=== PATIENT | female | born 1995 | race Caucasian/White ===

== ENCOUNTER 2017-08-29 10:55 | Emergency (ER) | payer OTHER ==
[2017-08-29 11:11] VITALS: BP 123/65
--- NOTE | 2017-08-29 11:29 | EDM.PDOC ---
ED HPI GENERAL MEDICAL PROBLEM - General Chief Complaint: ENT Problem Stated Complaint: SORE THROAT Time Seen by Provider: 08/29/17 11:12 - History of Present Illness INITIAL COMMENTS - FREE TEXT/NARRATIVE: ED HPI GENERAL MEDICAL PROBLEM - General Chief Complaint: Respiratory Problem Stated Complaint: COUGH Time Seen by Provider: 08/29/17 11:15 - History of Present Illness INITIAL COMMENTS - FREE TEXT/NARRATIVE: HISTORY AND PHYSICAL: History of present illness: The patient is a 56-year-old female who presents with a three-month history of sinus congestion and drainage sore throat and swollen glands in an occasional cough without abdominal pain vomiting or diarrhea or objective fevers and requests care. The patient says she has a provider at [facility], Dr. Kim, but she has not scheduled to see him because she felt the symptoms will go away . The patient denies any ill contacts and has no chronic medical problems. She's been eating and drinking normally but there is pain with swallowing. The patient says she has tried some pxhw-oei-hvtcjob meds and that has not helped. The patient has a history of a tonsillectomy in the past and she is not feeling rundown or overly weak and lightheaded or dizzy. Review of systems: As per history of present illness and below otherwise all systems reviewed and negative. Past medical history: As per history of present illness and as reviewed below otherwise noncontributory. Surgical history: As per history of present illness and as reviewed below otherwise noncontributory. Social history: No reported history of drug or alcohol abuse. Family history: As per history of present illness and as reviewed below otherwise noncontributory. Physical exam: General: Well-developed well-nourished female who is nontoxic and is not breathless with speaking nor is her voice hoarse. She does have nasal quality to voice. HEENT: Atraumatic, normocephalic, pupils reactive, negative for conjunctival pallor or scleral icterus, mucous membranes moist, throat clear of exudates and uvula is midline, there is minimal oropharyngeal erythema there is minimal cervical adenopathy no posterior adenopathy and no nuchal rigidity, there is minimal sinus tenderness on palpation, the nasal turbinates are boggy bilaterally left greater than right, neck supple, nontender, trachea midline. Lungs: Clear to auscultation, breath sounds equal bilaterally, chest nontender. Heart: S1S2, regular rate and rhythm no overt murmurs Abdomen: Soft nondistended nontender on palpation and bowel sounds are normoactive Pelvis: Deferred Genitourinary: Deferred. Rectal: Deferred. Extremities: Atraumatic, negative for cords or calf pain. Neurovascular unremarkable. Neuro: Awake, alert, oriented. Cranial nerves II through XII unremarkable. Cerebellum unremarkable. Motor and sensory unremarkable throughout. Exam nonfocal. Diagnostics: [] Therapeutics: [] Impression: Sinusitis/rhinitis/pharyngitis Definitive disposition and diagnosis as appropriate pending reevaluation and review of above. ribs Pain Score (Numeric/FACES): 3 - Related Data Allergies Allergy/AdvReac Type Severity Reaction Status Date / Time No Known Allergies Allergy Verified 08/29/17 11:10 Home Meds: Home Meds LORazepam [Ativan] 1 mg PO ASDIRECTED PRN 09/14/13 [History] Ibuprofen 2 tab PO ASDIRECTED PRN 06/24/16 [History] Past Medical History HEENT History: Reports: Allergic Rhinitis, Other (See Below) Other HEENT History: wears glasses Cardiovascular History: Reports: Heart Murmur Other Cardiovascular History: states hx of murmur Respiratory History: Reports: None Gastrointestinal History: Reports: Colon Polyp, GERD Genitourinary History: Reports: None ICU TECH History: Reports: Musculoskeletal History: Reports: Arthritis Neurological History: Reports: None Psychiatric History: Reports: Anxiety Endocrine/Metabolic History: Reports: Obesity/BMI 30+ Hematologic History: Reports: None Immunologic History: Reports: None Oncologic (Cancer) History: Reports: None Dermatologic History: Reports: None - Past Surgical History Head Surgeries/Procedures: Reports: None HEENT Surgical History: Reports: Tonsillectomy Cardiovascular Surgical History: Reports: None Respiratory Surgical History: Reports: None GI Surgical History: Reports: Colonoscopy Female Surgical History: Reports: Section, Endometrial Ablation, Tubal Ligation Endocrine Surgical History: Reports: None Neurological Surgical History: Reports: None Musculoskeletal Surgical History: Reports: Knee Replacement Other Musculoskeletal Surgeries/Procedures:: kendall knee replacement Oncologic Surgical History: Reports: None Dermatological Surgical History: Reports: None Social & Family History - Family History Family Medical History: Noncontributory - Tobacco Use Smoking Status *Q: Current Every Day Smoker Years of Tobacco use: 20 Packs/Tins Daily: 0.2 - Caffeine Use Caffeine Use: Reports: Coffee - Recreational Drug Use Recreational Drug Use: No ED ROS GENERAL - Review of Systems Review Of Systems: ROS reveals no pertinent complaints other than HPI. ED EXAM, GENERAL - Physical Exam Exam: See Below (See dictation) Course - Vital Signs Last Recorded V/S: Last Vital Signs Temp 36.3 C 08/29/17 11:10 Pulse 91 08/29/17 11:10 Resp 18 08/29/17 11:10 BP 114/61 08/29/17 11:10 Pulse Ox 95 08/29/17 11:10 Departure - Departure Time of Disposition: 11:25 Disposition: Home, Self-Care 01 Condition: Good Clinical Impression: Pharyngitis Qualifiers: Pharyngitis/tonsillitis etiology: unspecified etiology Qualified Code(s): J02.9 - Acute pharyngitis, unspecified Sinusitis Qualifiers: Sinusitis location: unspecified location Chronicity: unspecified Qualified Code (s): J32.9 - Chronic sinusitis, unspecified - Discharge Information Additional Instructions: The following information is given to patients seen in the emergency department who are being discharged to home. This information is to outline your options for follow-up care. We provide all patients seen in our emergency department with a follow-up referral. The need for follow-up, as well as the timing and circumstances, are variable depending upon the specifics of your emergency department visit. If you don't have a primary care physician on staff, we will provide you with a referral. We always advise you to contact your personal physician following an emergency department visit to inform them of the circumstance of the visit and for follow-up with them and/or the need for any referrals to a consulting specialist. The emergency department will also refer you to a specialist when appropriate. This referral assures that you have the opportunity for followup care with a specialist. All of these measure are taken in an effort to provide you with optimal care, which includes your followup. Under all circumstances we always encourage you to contact your private physician who remains a resource for coordinating your care. When calling for followup care, please make the office aware that this follow-up is from your recent emergency room visit. If for any reason you are refused follow-up, please contact the [facility] emergency department at and ask to speak to the emergency department charge nurse. [facility] [address] [place] [address] [facility] Primary care- Internal Medicine and Family [facility] [address] [place] [id number] Push fluids and rest and use [id number] Tylenol or ibuprofen for fevers and pain. Please take antibiotics until they are finished. Use nfxz-vcz-nmabngz Claritin or Ruthie to help dry her sinuses out an obyc-kvd-jvosyat Flonase to open up the nasal passages and promote drainage. Please call and follow-up with your provider in the clinic at [facility] or one of our providers in the next few days for reevaluation and return here as needed and as discussed Throat Pain Score (Numeric/FACES): 5 - Related Data Allergies Allergy/AdvReac Type Severity Reaction Status Date / Time lactose Allergy Nausea and Verified 08/29/17 11:05 Vomiting nuts Allergy Difficulty Uncoded 08/29/17 11:05 Swallowing Home Meds: Home Meds Bcp Daysi 08/29/17 [History] Past Medical History - Past Health History Medical/Surgical History: Denies Medical/Surgical History - Infectious Disease History Infectious Disease History: Reports: None Social & Family History - Family History Family Medical History: Noncontributory - Tobacco Use Smoking Status *Q: Never Smoker Second Hand Smoke Exposure: No - Caffeine Use Caffeine Use: Reports: Coffee - Recreational Drug Use Recreational Drug Use: No ED ROS GENERAL - Review of Systems Review Of Systems: ROS reveals no pertinent complaints other than HPI. ED EXAM, GENERAL - Physical Exam Exam: See Below (see Dictation) Course - Vital Signs Last Recorded V/S: Last Vital Signs Temp 36.4 C 08/29/17 11:07 Pulse 78 08/29/17 11:07 Resp 16 08/29/17 11:07 BP 123/65 08/29/17 11:07 Pulse Ox 97 08/29/17 11:07 Departure - Departure Time of Disposition: 11:31 Disposition: Home, Self-Care 01 Condition: Good Clinical Impression: Pharyngitis Qualifiers: Pharyngitis/tonsillitis etiology: unspecified etiology Qualified Code(s): J02.9 - Acute pharyngitis, unspecified Sinusitis Qualifiers: Sinusitis location: unspecified location Chronicity: unspecified Qualified Code (s): J32.9 - Chronic sinusitis, unspecified - Discharge Information Forms: ED Department Discharge Additional Instructions: The following information is given to patients seen in the emergency department who are being discharged to home. This information is to outline your options for follow-up care. We provide all patients seen in our emergency department with a follow-up referral. The need for follow-up, as well as the timing and circumstances, are variable depending upon the specifics of your emergency department visit. If you don't have a primary care physician on staff, we will provide you with a referral. We always advise you to contact your personal physician following an emergency department visit to inform them of the circumstance of the visit and for follow-up with them and/or the need for any referrals to a consulting specialist. The emergency department will also refer you to a specialist when appropriate. This referral assures that you have the opportunity for followup care with a specialist. All of these measure are taken in an effort to provide you with optimal care, which includes your followup. Under all circumstances we always encourage you to contact your private physician who remains a resource for coordinating your care. When calling for followup care, please make the office aware that this follow-up is from your recent emergency room visit. If for any reason you are refused follow-up, please contact the [facility] emergency department at and ask to speak to the emergency department charge nurse. [address] [place] [address] [facility] Primary care- Internal Medicine and Family [address] [address] Push hydration and use mqkq-lzn-[id number] Tylenol or ibuprofen for fevers and pain. These use anabolic to their finished. Use qhmx-jbz-dxujkwz Claritin or Ruthie for sinus fluid as well as Flonase to promote sinus drainage. Please call and follow-up with your provider at [facility] or one of our providers in the next few days for reevaluation and further care. Return to ER as needed and as discussed
== END 2017-08-29 11:43 | disposition home or self-care (01) ==
LOC: MW.ED 10:55
DX: J02.9 Acute pharyngitis, unspecified (principal); J32.9 Chronic sinusitis, unspecified; F17.210 Nicotine dependence, cigarettes, uncomplicated; Z91.018 Allergy to other foods
CPT/HCPCS: 99282

== ENCOUNTER 2019-12-23 12:31 | Emergency (ER) | payer OTHER ==
[2019-12-23 12:59] VITALS: BP 113/74; PULSE 69
--- NOTE | 2019-12-23 13:28 | EDM.PDOC ---
ED HPI GENERAL MEDICAL PROBLEM - General Chief Complaint: ENT Problem Stated Complaint: COUGHING, SORE THROAT Time Seen by Provider: 12/23/19 13:06 - History of Present Illness INITIAL COMMENTS - FREE TEXT/NARRATIVE: History of present illness: Patient presents with a cough she has had for a week she says she is having trouble at work with exertion but otherwise the cough is annoying it is hard for her to take a deep breath without coughing she denies any fever chills or is been no body aches no loss of sense of smell or taste no medical problems nothing seems to make it better or worse Review of systems: As per history of present illness and below otherwise all systems reviewed and negative. Past medical history: As per history of present illness and as reviewed below otherwise noncontributory. Surgical history: As per history of present illness and as reviewed below otherwise noncontributory. Social history: No reported history of drug or alcohol abuse. Family history: As per history of present illness and as reviewed below otherwise noncontributory. Physical exam: HEENT: Atraumatic, normocephalic, pupils reactive, negative for conjunctival pallor or scleral icterus, mucous membranes moist, throat clear, neck supple, nontender, trachea midline. Lungs: Clear to auscultation, breath sounds equal bilaterally, chest nontender. Heart: S1S2, regular, negative for clicks, rubs, or JVD. Abdomen: Soft, nondistended, nontender. Negative for masses or hepatosplenomegaly. Negative for costovertebral tenderness. Pelvis: Stable nontender. Genitourinary: Deferred. Rectal: Deferred. Extremities: Atraumatic, negative for cords or calf pain. Neurovascular unremarkable. Neuro: Awake, alert, oriented. Cranial nerves II through XII unremarkable. Cerebellum unremarkable. Motor and sensory unremarkable throughout. Exam nonfocal. Diagnostics: [] Therapeutics: [] Impression: Upper respiratory infection [] Plan: Discharge home [] Definitive disposition and diagnosis as appropriate pending reevaluation and review of above. - Related Data Allergies Allergy/AdvReac Type Severity Reaction Status Date / Time lactose Allergy Nausea and Verified 12/23/19 13:01 Vomiting nuts Allergy Difficulty Uncoded 12/23/19 13:01 Swallowing Home Meds: Home Meds . [No Known Home Meds] 12/23/19 [History] Past Medical History - Past Health History Medical/Surgical History: Denies Medical/Surgical History HEENT History: Reports: None Cardiovascular History: Reports: None Respiratory History: Reports: None Gastrointestinal History: Reports: None Genitourinary History: Reports: None CAP MAKER History: Reports: None Musculoskeletal History: Reports: None Neurological History: Reports: None Psychiatric History: Reports: None Endocrine/Metabolic History: Reports: None Hematologic History: Reports: None Immunologic History: Reports: None Oncologic (Cancer) History: Reports: None Dermatologic History: Reports: None - Infectious Disease History Infectious Disease History: Reports: None - Past Surgical History Head Surgeries/Procedures: Reports: None Social & Family History - Family History Family Medical History: Noncontributory HEENT: Reports: None - Tobacco Use Smoking Status *Q: Never Smoker Second Hand Smoke Exposure: No - Caffeine Use Caffeine Use: Reports: None - Recreational Drug Use Recreational Drug Use: No ED ROS GENERAL - Review of Systems Review Of Systems: See Below ED EXAM, GENERAL - Physical Exam Exam: See Below Course - Vital Signs Text/Narrative:: Patient has a cough her vital signs are stable she is afebrile she is refusing COVID testing. On exam her breath sounds are clear she is not in respiratory distress vital signs are stable she be discharged home with URI instruction she is warned to self isolate. Last Recorded V/S: Last Vital Signs Temp 35.6 C L 12/23/19 12:58 Pulse 69 12/23/19 12:58 Resp 20 12/23/19 12:58 BP 113/74 12/23/19 12:58 Pulse Ox 97 12/23/19 12:58 Departure - Departure Time of Disposition: 13:27 Disposition: Home, Self-Care 01 Condition: Good Clinical Impression: Upper respiratory infection - Discharge Information *PRESCRIPTION DRUG MONITORING PROGRAM REVIEWED*: Not Applicable *COPY OF PRESCRIPTION DRUG MONITORING REPORT IN PATIENT SLAVA: Not Applicable Instructions: Upper Respiratory Infection, Adult, [id number] Referrals: Nury Rose NP [Primary Care Provider] - Additional Instructions: The following information is given to patients seen in the emergency department who are being discharged to home. This information is to outline your options for follow-up care. We provide all patients seen in our emergency department with a follow-up referral. The need for follow-up, as well as the timing and circumstances, are variable depending upon the specifics of your emergency department visit. If you don't have a primary care physician on staff, we will provide you with a referral. We always advise you to contact your personal physician following an emergency department visit to inform them of the circumstance of the visit and for follow-up with them and/or the need for any referrals to a consulting specialist. The emergency department will also refer you to a specialist when appropriate. This referral assures that you have the opportunity for follow-up care with a specialist. All of these measure are taken in an effort to provide you with optimal care, which includes your follow-up. Under all circumstances we always encourage you to contact your private physician who remains a resource for coordinating your care. When calling for follow-up care, please make the office aware that this follow-up is from your recent emergency room visit. If for any reason you are refused follow-up, please contact the [facility] Emergency Department at and asked to speak to the emergency department charge nurse. [facility] - Primary Care [address] [place] [address] [address] Sepsis Event Note (ED) - Evaluation Sepsis Screening Result: No Definite Risk - Focused Exam Vital Signs: Vital Signs Temp Pulse Resp BP Pulse Ox 12/23/19 12:58 35.6 C L 69 20 113/74 97
== END 2019-12-23 13:37 | disposition home or self-care (01) ==
LOC: MW.ED 12:31
DX: J06.9 Acute upper respiratory infection, unspecified (principal); Z91.018 Allergy to other foods; Z91.011 Allergy to milk products
CPT/HCPCS: 99282; 99283

== ENCOUNTER 2021-01-02 19:50 | Emergency (ER) | payer OTHER ==
[2021-01-02] MEDS ORDERED: Sodium Chloride 0.9% 10 ML Syringe FLUSH PRN (20:47)
[2021-01-02] MEDS ORDERED: Sodium Chloride 0.9% 2.5 ML Syringe FLUSH PRN (20:47)
[2021-01-02] MEDS ORDERED: Alum Hydrox/Mag Hydrox/Simeth 15 ML, Lidocaine 2% 5 ML PO ONE ×2 (20:47)
[2021-01-02 21:57] LABS: BLOOD UREA NITROGEN,BUN 15 mg/dL (7.0-18.0); CHLORIDE,CL 102 mmol/L (98-107); GLUCOSE RANDOM 98 mg/dL (74-106); LIPASE 162 U/L (73-393); POTASSIUM,K 3.7 mmol/L (3.5-5.1); SODIUM,NA 141 mmol/L (136-145)
[2021-01-02] MEDS ORDERED: Pantoprazole 40 MG Tab.CR PO SCH (22:15)
--- NOTE | 2021-01-02 22:26 | EDM.PDOC ---
ED HPI GENERAL MEDICAL PROBLEM - General Chief Complaint: General Stated Complaint: ESOPHAGUS PAIN Time Seen by Provider: 01/02/21 21:10 - History of Present Illness INITIAL COMMENTS - FREE TEXT/NARRATIVE: HISTORY AND PHYSICAL: History of present illness: This 25-year-old female who presents ER today secondary to needing evaluation of difficulty swallowing. Patient reports that she was in [facility] and was seen in the ER there and was told that she may have eosinophilic esophagitis. Patient reports that she has pain and discomfort when she swallows. She reports that she was given antibiotics for possible bronchitis at [place]. Patient denies any recent fevers, shakes, chills, nausea, vomiting, diarrhea, dysuria, frequency, urgency abdominal pain, chest pain. Patient reports that he has a difficult time when she swallows and feels like it hurts until it enters her stomach and she feels much better. Patient has any recent weight loss. Patient denies any hemoptysis, melena, bright red blood per rectum. Review of systems: As per history of present illness and below otherwise all systems reviewed and negative. Past medical history: As per history of present illness and as reviewed below otherwise no ncontributory. Surgical history: As per history of present illness and as reviewed below otherwise noncontributory. Social history: No reported history of drug abuse. Family history: As per history of present illness and as reviewed below otherwise noncontributory. Physical exam: HEENT: Atraumatic, normocephalic, pupils reactive, negative for conjunctival pallor or scleral icterus, mucous membranes moist, throat clear, neck supple, nontender, trachea midline. Lungs: Clear to auscultation, breath sounds equal bilaterally, chest nontender. Heart: S1S2, regular, negative for clicks, rubs, or JVD. Abdomen: Soft, nondistended, nontender. Negative for masses or hepatosplenomegaly. Negative for costovertebral tenderness. Pelvis: Stable nontender. Genitourinary: Deferred. Rectal: Deferred. Extremities: Atraumatic, negative for cords or calf pain. Neurovascular unremarkable. Neuro: Awake, alert, oriented. Cranial nerves II through XII unremarkable. Cerebellum unremarkable. Motor and sensory unremarkable throughout. Exam nonfocal. Diagnostics: CBC, CMP within normal limits Therapeutics: GI cocktail with some improvement Assessment and plan: 25-year-old female who presents ER today with likely esophagitis either erosive versus eosinophilic. Patient will get started on Prilosec OTC 20 mg twice a day for 2 weeks. Patient has an appointment tomorrow with her primary care physicia n I recommend that she get a referral to see a GI specialist or surgeon to get endoscopy. Patient reports that she does feel better and feel stable for discharge home Reassessment at the time of disposition demonstrates that the patient is in no acute distress. The patient has remained stable throughout the entire ED visit and is without objective evidence for acute process requiring urgent int ervention or hospitalization. The patient is stable for discharge, counseling is provided as documented above, discussed symptomatic treatment and specific conditions for return. I have spoken with the patient/caregiver and discussed todays findings, in addition to providing specific details for the plan of care. Questions are answered and there is agreement with the plan. Definitive disposition and diagnosis as appropriate pending reevaluation and review of above. esophagus Pain Score (Numeric/FACES): 2 - Related Data Allergies Allergy/AdvReac Type Severity Reaction Status Date / Time lactose Allergy Nausea and Verified 01/02/21 20:43 Vomiting nuts Allergy Difficulty Uncoded 01/02/21 20:43 Swallowing Home Meds: Home Meds Omeprazole Magnesium [Prilosec Otc] 20 mg PO BID #30 tablet. 01/02/21 [Rx] Past Medical History - Past Health History Medical/Surgical History: Denies Medical/Surgical History HEENT History: Reports: None Cardiovascular History: Reports: None Respiratory History: Reports: None Gastrointestinal History: Reports: None Genitourinary History: Reports: None [employer]CH[employer]IST History: Reports: Musculoskeletal History: Reports: None Neurological History: Reports: None Psychiatric History: Reports: None Endocrine/Metabolic History: Reports: None Hematologic History: Reports: None Immunologic History: Reports: None Oncologic (Cancer) History: Reports: None Dermatologic History: Reports: None - Infectious Disease History Infectious Disease History: Reports: Chicken Pox - Past Surgical History Head Surgeries/Procedures: Reports: None HEENT Surgical History: Reports: Tonsillectomy GI Surgical History: Reports: Cholecystectomy Social & Family History - Family History Family Medical History: No Pertinent Family History HEENT: Reports: None - Tobacco Use Tobacco Use Status *Q: Never Tobacco User - Caffeine Use Caffeine Use: Reports: Coffee - Recreational Drug Use Recreational Drug Use: No ED ROS GENERAL - Review of Systems Review Of Systems: See Below ED EXAM, GENERAL - Physical Exam Exam: See Below Course - Vital Signs Last Recorded V/S: Last Vital Signs Temp 96.9 F 01/02/21 20:44 Pulse 95 01/02/21 20:44 Resp 18 01/02/21 20:44 BP 112/77 01/02/21 20:44 Pulse Ox 98 01/02/21 20:44 - Orders/Labs/Meds Orders: Active Orders 24 hr Category Date Time Status Pantoprazole [ProTONIX] Med 01/02/21 22:15 Active 40 mg PO DAILY Sodium Chloride 0.9% [Saline Flush] Med 01/02/21 20:47 Active 10 ml FLUSH ASDIRECTED PRN Sodium Chloride 0.9% [Saline Flush] Med 01/02/21 20:47 Active 2.5 ml FLUSH ASDIRECTED PRN Saline Lock Insert [OM.PC] Stat Oth 01/02/21 20:47 Ordered Medication Orders Pantoprazole Sodium (Pantoprazole 40 Mg Tab.Cr) 40 mg PO DAILY PIERO Sodium Chloride (Sodium Chloride 0.9% 10 Ml Syringe) 10 ml FLUSH ASDIRECTED PRN PRN Reason: Keep Vein Open Last Admin: 01/02/21 21:01 Dose: 10 ml Documented by: SARMAD Sodium Chloride (Sodium Chloride 0.9% 2.5 Ml Syringe) 2.5 ml FLUSH ASDIRECTED PRN PRN Reason: Keep Vein Open Last Admin: 01/02/21 21:02 Dose: 2.5 ml Documented by: SARMAD Labs: Laboratory Tests 01/02/21 01/02/21 Range/Units 21:26 21:26 WBC 8.50 (4.0-11.0) K/uL RBC 4.96 (4.30-5.90) M/uL Hgb 13.5 (12.0-16.0) g/dL Hct 40.0 (36.0-46.0) % MCV 80.6 (80.0-98.0) fL MCH 27.2 (27.0-32.0) pg MCHC 33.8 (31.0-37.0) g/dL RDW Std Deviation 40.5 (28.0-62.0) fl RDW Coeff of Fer 14 (11.0-15.0) % Plt Count 428 H (150-400) K/uL MPV 8.10 (7.40-12.00) fL Add Manual Diff YES Neutrophils % (Manual) 44 L (48.0-80.0) % Lymphocytes % (Manual) 42 H (16.0-40.0) % Monocytes % (Manual) 7 (0.0-15.0) % Eosinophils % (Manual) 7 (0.0-7.0) % Nucleated RBC % 0.0 /100WBC Absolute Seg Neuts 3.7 (1.4-5.7) Lymphocytes # (Manual) 3.6 H (0.6-2.4) Monocytes # (Manual) 0.6 (0.0-0.8) Eosinophils # (Manual) 0.6 (0.0-0.7) Nucleated RBCs # 0 K/uL Sodium 141 (136-145) mmol/L Potassium 3.7 (3.5-5.1) mmol/L Chloride 102 (98-107) mmol/L Carbon Dioxide 23.0 (21.0-32.0) mmol/L BUN 15 (7.0-18.0) mg/dL Creatinine 1.0 (0.6-1.0) mg/dL Est Cr Clr Drug Dosing 67.43 mL/min Estimated GFR (MDRD) > 60.0 ml/min Glucose 98 (74-106) mg/dL Calcium 9.2 (8.5-10.1) mg/dL Total Bilirubin 0.5 (0.2-1.0) mg/dL AST 22 (15-37) IU/L ALT 37 (14-63) IU/L Alkaline Phosphatase 96 (46-116) U/L Total Protein 8.3 H (6.4-8.2) g/dL Albumin 4.2 (3.4-5.0) g/dL Globulin 4.1 H (2.6-4.0) g/dL Albumin/Globulin Ratio 1.0 (0.9-1.6) Lipase 162 (73-393) U/L Meds: Medications Generic Name Dose Route Start Last Admin Trade Name Freq PRN Reason Stop Dose Admin Pantoprazole Sodium 40 mg 01/02/21 22:15 Pantoprazole 40 Mg Tab.Cr PO DAILY PIERO Sodium Chloride 10 ml 01/02/21 20:47 01/02/21 21:01 Sodium Chloride 0.9% 10 Ml Syringe FLUSH 10 ml ASDIRECTED PRN Administration Keep Vein Open Sodium Chloride 2.5 ml 01/02/21 20:47 01/02/21 21:02 Sodium Chloride 0.9% 2.5 Ml Syringe FLUSH 2.5 ml ASDIRECTED PRN Administration Keep Vein Open Discontinued Medications Generic Name Dose Route Start Last Admin Trade Name Rafaelq PRN Reason Stop Dose Admin Al Hydroxide/Mg Hydroxide 15 0 ml 01/02/21 20:47 01/02/21 21:01 ml/ Lidocaine HCl 5 ml PO 01/02/21 20:48 15 each ONETIME ONE Administration Departure - Departure Time of Disposition: 22:26 Disposition: Home, Self-Care 01 Condition: Good Clinical Impression: Esophagitis - Discharge Information Instructions: Esophagitis Referrals: PCP,None [Primary Care Provider] - Additional Instructions: You were seen and evaluated in ER today secondary to likely esophagitis. Please keep your appointment your doctor tomorrow and hopefully they will be able is refer you to see a GI specialist or surgeon to do an endoscopy on you. I have written you prescription for Prilosec to take twice a day to empirically treat you for erosive esophagitis which may be causing her symptoms. Your symptoms also may be secondary to eosinophilic esophagitis. In order to diagnosis, and they will need to do an endoscopy and biopsies on your esophagus. The following information is given to patients seen in the emergency department who are being discharged to home. This information is to outline your options for follow-up care. We provide all patients seen in our emergency department with a follow-up referral. The need for follow-up, as well as the timing and circumstances, are variable depending upon the specifics of your emergency department visit. If you don't have a primary care physician on staff, we will provide you with a referral. We always advise you to contact your personal physician following an emergency department visit to inform them of the circumstance of the visit and for follow-up with them and/or the need for any referrals to a consulting specialist. The emergency department will also refer you to a specialist when appropriate. This referral assures that you have the opportunity for follow-up care with a specialist. All of these measure are taken in an effort to provide you with optimal care, which includes your follow-up. Under all circumstances we always encourage you to contact your private physician who remains a resource for coordinating your care. When calling for follow-up care, please make the office aware that this follow-up is from your recent emergency room visit. If for any reason you are refused follow-up, please contact the [facility] Emergency Department at and asked to speak to the emergency department charge nurse. [facility] [address], [place] [address] [facility] [address] [place] [address] Sepsis Event Note (ED) - Evaluation Sepsis Screening Result: No Definite Risk - Focused Exam Vital Signs: Vital Signs Temp Pulse Resp BP Pulse Ox 01/02/21 20:44 96.9 F 95 18 112/77 98 - My Orders Last 24 Hours: My Active Orders 01/02/21 20:47 Sodium Chloride 0.9% [Saline Flush] 10 ml FLUSH ASDIRECTED PRN Sodium Chloride 0.9% [Saline Flush] 2.5 ml FLUSH ASDIRECTED PRN Saline Lock Insert [OM.PC] Stat 01/02/21 22:15 Pantoprazole [ProTONIX] 40 mg PO DAILY - Assessment/Plan Last 24 Hours: My Active Orders 01/02/21 20:47 Sodium Chloride 0.9% [Saline Flush] 10 ml FLUSH ASDIRECTED PRN Sodium Chloride 0.9% [Saline Flush] 2.5 ml FLUSH ASDIRECTED PRN Saline Lock Insert [OM.PC] Stat 01/02/21 22:15 Pantoprazole [ProTONIX] 40 mg PO DAILY
[2021-01-02 22:35] VITALS: BP 104/75; PULSE 93
== END 2021-01-02 22:37 | disposition home or self-care (01) ==
LOC: MW.ED 19:50
DX: K20.90 Esophagitis, unspecified without bleeding (principal); Z91.011 Allergy to milk products; Z91.010 Allergy to peanuts; Z79.899 Other long term (current) drug therapy
CPT/HCPCS: 36415; 80053; 83690; 85025; 99284; A9270